=== PATIENT | female | born 1990 | race African-American/Black ===

== ENCOUNTER 2017-01-13 15:52 | Emergency (ER) | payer SELFPAY ==
[~2017-01-13] VITALS: Ht 152.4 cm; Wt 56.0 kg
[2017-01-13 15:53] VITALS: BP 136/77; PULSE 82; RESP 20; TEMP 98.5; O2SAT 99
--- NOTE | 2017-01-13 16:07 | PD ---
Physical Exam Time Seen by Provider: 16:05 Narrative 26 y/o female whop reports that she is ega 8 weeks here for evaluation of 2 days RLQ abdominal pain. +Nausea, denies vomiting, vaginal bleeding/ discharge. 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 Vital signs reviewed. Seen at triage desk. Awaiting bed placement. Data Data Last Documented VS Vital Signs Date Time Temp Pulse Resp B/P Pulse Ox O2 Delivery O2 Flow Rate FiO2 01/13/17 15:53 98.5 82 20 136/77 99 Room Air [facility] Medical Record Reviewed: Yes Supervised Visit with KENNEDY: Mayo Monk Jan 13, 2017 16:07
[2017-01-13 17:55] LABS: AUTOMATED NEUTROPHIL # 4.7 TH/MM3 (1.8-7.7); BASOPHIL % 0.4 % (0.0-2.0); EOSINOPHIL % 0.6 % (0.0-4.0); HEMATOCRIT 36.1 % (35.0-46.0); HEMO FLAGS DIFF FINAL; LYMPH % 20.3 % (9.0-44.0); LYMPHOCYTE # 1.4 TH/MM3 (1.0-4.8); MEAN CELL VOLUME 93.9 FL (80.0-100.0); MEAN CORPUSCULAR HEMOGLOBIN 31.1 PG (27.0-34.0); MEAN CORPUSCULAR HGB CONC 33.1 % (32.0-36.0); MONO % 10.3 % (0.0-8.0); NEUT % 68.4 % (16.0-70.0); PLATELET COUNT 270 TH/MM3 (150-450); RED BLOOD COUNT 3.84 MIL/MM3 (4.00-5.30); RED CELL DISTRIBUTION WIDTH 14.4 % (11.6-17.2); WHITE BLOOD COUNT 6.9 TH/MM3 (4.0-11.0)
[2017-01-13 18:09] LABS: ALT (GPT) 19 U/L (10-53); ANION GAP 7 MEQ/L (5-15); AST (GOT) 12 U/L (15-37); BICARBONATE 27.1 MEQ/L (21.0-32.0); BLOOD UREA NITROGEN 9 MG/DL (7-18); CHLORIDE 102 MEQ/L (98-107); GLOMERULAR FILTRATION RATE 129 ML/MIN (>89); POTASSIUM 3.5 MEQ/L (3.5-5.1); SODIUM (NA) 136 MEQ/L (136-145)
[2017-01-13 18:13] LABS: ALKALINE PHOSPHATASE 49 U/L (45-117); TOTAL BILIRUBIN ADULT 0.1 MG/DL (0.2-1.0)
[2017-01-13 18:20] LABS: BACTERIA, URINE RARE /hpf; BLOOD, URINE NEG (NEG); COMMENT (UR) CULT NOT INDICATED; CULTURE IF INDICATED CULT NOT INDICATED; GLUCOSE,URINE NEG (NEG); KETONE, URINE NEG (NEG); MUCUS URINE FEW /lpf (OCC); NITRITE,URINE NEG (NEG); SQUAMOUS EPITHELIAL CELL URINE 6 /hpf (0-5); URINE COLOR YELLOW (YELLW/STRAW)
[2017-01-13 18:40] LABS: BETA HCG QUANT 65484 MIU/ML (0-5)
[2017-01-13] MEDS ORDERED: PRENATAL VITAMIN PO (19:29)
[2017-01-13] MEDS ORDERED: CARB300C7 PO (19:29)
--- NOTE | 2017-01-13 19:36 | PD ---
HPI Chief Complaint: Related Problem Time Seen by Provider: 19:06 Travel History International Travel<30 days: No Contact w/Intl Traveler<30days: No Traveled to known affect area: No History of Present Illness HPI 26-year-old female presents with chief complaint of right-sided and low abdominal pain 2 days. Patient reports last menstrual period October 19. She reports the pain as episodes of "cramping" that lasts for approximately 10 minutes and then spontaneously resolved. She reports 2-3 episodes per day for the last 2 days. She currently has no pain. She reports nausea without vomiting. She denies fever, chills, vaginal bleeding, vaginal discharge, dysuria. She reports she was seen approximately one month ago in a [facility] for an episode of syncope where she had an ultrasound that she is unable to confirm what the ultrasound found. PFSH Past Medical History Narrative Medical Seizure order on Trileptal. 1 para 0 Cerebrovascular Accident: No (seizures) Social History Tobacco Use: No Allergies-Medications (Allergen,Severity, Reaction): Coded Allergies: No Known Allergies (Unverified , 01/13/17) Reported Meds & Prescriptions Reported Meds & Active Scripts Active Reported [ Vitamin] 1 Tab PO DAILY Carbamazepine ER 12 HR (Carbamazepine) 300 Mg Cap 300 Mg PO Q12HR Review of Systems Except as stated in HPI: all other systems reviewed are Neg General / Constitutional: No: Fever Eyes: No: Visual changes HENT: No: Headaches Cardiovascular: No: Chest Pain or Discomfort Respiratory: No: Shortness of Breath Gastrointestinal: Positive: Abdominal Pain Genitourinary: No: Dysuria Musculoskeletal: No: Pain Physical Exam Narrative GENERAL: [Alert, well-appearing female no acute distress.-] SKIN: Focused skin assessment warm/dry. HEAD: Atraumatic. Normocephalic. EYES: Pupils equal and round. No scleral icterus. No injection or drainage. ENT: No nasal bleeding or discharge. Mucous membranes pink and moist. NECK: Trachea midline. No JVD. CARDIOVASCULAR: Regular rate and rhythm. No murmur appreciated. RESPIRATORY: No accessory muscle use. Clear to auscultation. Breath sounds equal bilaterally. GASTROINTESTINAL: Abdomen soft, point tenderness in the suprapubic region, nondistended. Hepatic and splenic margins not palpable. : moderate amount of thick yellow/whitish discharge in the vaginal vault. Cervical slightly friable, os closed. +CMT. MUSCULOSKELETAL: No obvious deformities. No clubbing. No cyanosis. No edema. NEUROLOGICAL: Awake and alert. No obvious cranial nerve deficits. Motor grossly within normal limits. Normal speech. PSYCHIATRIC: Appropriate mood and affect; insight and judgment normal. Data Data Last Documented VS Vital Signs Date Time Temp Pulse Resp B/P Pulse Ox O2 Delivery O2 Flow Rate FiO2 01/13/17 15:53 98.5 82 20 136/77 99 Room Air Orders Beta Hcg (Quant/Titer) (01/13/17 16:07) Complete Blood Count With Diff (01/13/17 16:07) Comprehensive Metabolic Panel (01/13/17 16:07) Urinalysis - C+S If Indicated (01/13/17 16:07) Ed Urine Pregnancytest Poc (01/13/17 16:07) Lipase (01/13/17 16:07) Wet Prep Profile (01/13/17 19:24) Ed Poc Ultrasound (01/13/17 ) Azithromycin Powd Pack (Zithromax Powd P (01/13/17 20:00) Ceftriaxone Inj (Rocephin Inj) (01/13/17 20:00) Lidocaine 1% Inj (50 Ml) (Xylocaine 1% I (01/13/17 20:00) Acetaminophen (Tylenol) (01/13/17 20:00) Ed Poc Ultrasound (01/13/17 ) Gc And Chlamydia Pcr (01/13/17 20:08) Labs Laboratory Tests Test 01/13/17 01/13/17 01/13/17 16:22 16:33 19:41 Urine Color YELLOW Urine Turbidity HAZY Urine pH 8.0 Urine Specific [place] 1.024 Urine Protein TRACE mg/dL Urine Glucose (UA) NEG mg/dL Urine Ketones NEG mg/dL Urine Occult Blood NEG Urine Nitrite NEG Urine Bilirubin NEG Urine Urobilinogen LESS THAN 2.0 MG/DL Urine Leukocyte Esterase NEG Urine RBC 2 /hpf Urine WBC 3 /hpf Urine Squamous Epithelial 6 /hpf Cells Urine Amorphous Sediment RARE Urine Bacteria RARE /hpf Urine Mucus FEW /lpf Microscopic Urinalysis Comment CULT NOT INDICATED White Blood Count 6.9 TH/MM3 Red Blood Count 3.84 MIL/MM3 Hemoglobin 11.9 GM/DL Hematocrit 36.1 % Mean Corpuscular Volume 93.9 FL Mean Corpuscular Hemoglobin 31.1 PG Mean Corpuscular Hemoglobin 33.1 % Concent Red Cell Distribution Width 14.4 % Platelet Count 270 TH/MM3 Mean Platelet Volume 7.7 FL Neutrophils (%) (Auto) 68.4 % Lymphocytes (%) (Auto) 20.3 % Monocytes (%) (Auto) 10.3 % Eosinophils (%) (Auto) 0.6 % Basophils (%) (Auto) 0.4 % Neutrophils # (Auto) 4.7 TH/MM3 Lymphocytes # (Auto) 1.4 TH/MM3 Monocytes # (Auto) 0.7 TH/MM3 Eosinophils # (Auto) 0.0 TH/MM3 Basophils # (Auto) 0.0 TH/MM3 CBC Comment DIFF FINAL Differential Comment Sodium Level 136 MEQ/L Potassium Level 3.5 MEQ/L Chloride Level 102 MEQ/L Carbon Dioxide Level 27.1 MEQ/L Anion Gap 7 MEQ/L Blood Urea Nitrogen 9 MG/DL Creatinine 0.57 MG/DL Estimat Glomerular Filtration 129 ML/MIN Rate Random Glucose 70 MG/DL Calcium Level 9.1 MG/DL Total Bilirubin 0.1 MG/DL Aspartate Amino Transf 12 U/L (AST/SGOT) Alanine Aminotransferase 19 U/L (ALT/SGPT) Alkaline Phosphatase 49 U/L Total Protein 8.1 GM/DL Albumin 3.3 GM/DL Lipase 122 U/L Human Chorionic Gonadotropin, [address]237 MIU/ML Quant Clue Cells (Wet Prep) NONE SEEN Vaginal Trichomonas (Wet Prep) NONE SEEN Vaginal Yeast (Wet Prep) NONE SEEN MDM Medical Decision Making Medical Screen Exam Complete: Yes Emergency Medical Condition: Yes Differential Diagnosis PID, UTI, ectopic, unlikely appendicitis Narrative Course 26 year old female with c/o of low abd pain x 2 days. She describes the pain as "cramping" lasting up to 10 minutes & then resolving. She reports 2- 3 episodes per day for the last 2 days. Patient is unsure of her exact LMP but believes it was in October. On exam patient has mild suprapubic tenderness. Pelvic exam reveal copious amount of vaginal discharge & mild CMT. Patient will be treated empirically for GC/Chlamydia. Bedside ultrasound performed by Dr. Grant which reveal a single live intrauterine . Heart rate 158. CBC unremarkable. BMP unremarkable UA: No infection Wet prep: No yeast, clue cells, Trichomonas 2049: All diagnostic findings reviewed with patient. She was reexamined. Her abdomen is soft and nontender. She is nontoxic appearing. She was treated for cervicitis/PID and referred to [facility] for follow-up this week. Return precautions discussed. Patient agrees to plan. Diagnosis Primary Impression: PID (pelvic inflammatory disease) Additional Impression: Qualified Code: Z34.90 - , unspecified gestational age Referrals: [facility] Additional Instructions: Take Tylenol as needed for pain. Drink plenty fluids and rest. Call and make an appointment for follow-up with [facility] this week. Return to the emergency department if he develops new or worsening symptoms. Disposition: 01 DISCHARGE HOME Condition: Stable Marisabel Osuna Jan 13, 2017 19:36
[2017-01-13] MEDS ORDERED: ACETAMINOPHEN 325 MG TAB PO ONE (20:00)
[2017-01-13] MEDS ORDERED: AZITHROMYCIN PWD FOR SUSP 1 GM PACKET PO ONE (20:00)
[2017-01-13] MEDS ORDERED: cefTRIAXone 250 MG VIAL IM ONE (20:00)
[2017-01-13] MEDS ORDERED: LIDOCAINE HCL 1% 50 ML VIAL IM ONE (20:00)
--- NOTE | 2017-01-13 20:12 | PD ---
Physical Exam Narrative I, Dr. Grant, have reviewed the advance practice practitioner's documentation and am in agreement, met with the patient face to face, made the diagnosis, and the medical decision making was done by me. *My assessment and Findings: PID vs. UTI vs. bacterial vaginosis 26yo F who states she is about 8 weeks here with lower abdominal cramping for 2 days. Pt had yellow vaginal discharge on pelvic exam and mild cervical motion tenderness so will be empirically treated with ceftriaxone and azithromycin. Bedside US showed positive IUP with FHR 158bpm. Pt's abdomen is soft and nontender on exam. She is well appearing. Data Data Last Documented VS Vital Signs Date Time Temp Pulse Resp B/P Pulse Ox O2 Delivery O2 Flow Rate FiO2 01/13/17 15:53 98.5 82 20 136/77 99 Room Air Orders Beta Hcg (Quant/Titer) (01/13/17 16:07) Complete Blood Count With Diff (01/13/17 16:07) Comprehensive Metabolic Panel (01/13/17 16:07) Urinalysis - C+S If Indicated (01/13/17 16:07) Ed Urine Pregnancytest Poc (01/13/17 16:07) Lipase (01/13/17 16:07) Wet Prep Profile (01/13/17 19:24) Ed Poc Ultrasound (01/13/17 ) Azithromycin Powd Pack (Zithromax Powd P (01/13/17 20:00) Ceftriaxone Inj (Rocephin Inj) (01/13/17 20:00) Lidocaine 1% Inj (50 Ml) (Xylocaine 1% I (01/13/17 20:00) Acetaminophen (Tylenol) (01/13/17 20:00) Ed Poc Ultrasound (01/13/17 ) Gc And Chlamydia Pcr (01/13/17 20:08) Labs Laboratory Tests Test 01/13/17 01/13/17 01/13/17 01/13/17 16:22 16:32 16:33 19:41 Urine Color YELLOW Urine Turbidity HAZY Urine pH 8.0 Urine Specific [place] 1.024 Urine Protein TRACE mg/dL Urine Glucose (UA) NEG mg/dL Urine Ketones NEG mg/dL Urine Occult Blood NEG Urine Nitrite NEG Urine Bilirubin NEG Urine Urobilinogen LESS THAN 2.0 MG/DL Urine Leukocyte Esterase NEG Urine RBC 2 /hpf Urine WBC 3 /hpf Urine Squamous Epithelial 6 /hpf Cells Urine Amorphous Sediment RARE Urine Bacteria RARE /hpf Urine Mucus FEW /lpf Microscopic Urinalysis Comment CULT NOT INDICATED Chlamydia trachomatis DNA NOT DETECTED (PCR) Neisseria gonorrhoeae DNA NOT DETECTED (PCR) White Blood Count 6.9 TH/MM3 Red Blood Count 3.84 MIL/MM3 Hemoglobin 11.9 GM/DL Hematocrit 36.1 % Mean Corpuscular Volume 93.9 FL Mean Corpuscular Hemoglobin 31.1 PG Mean Corpuscular Hemoglobin 33.1 % Concent Red Cell Distribution Width 14.4 % Platelet Count 270 TH/MM3 Mean Platelet Volume 7.7 FL Neutrophils (%) (Auto) 68.4 % Lymphocytes (%) (Auto) 20.3 % Monocytes (%) (Auto) 10.3 % Eosinophils (%) (Auto) 0.6 % Basophils (%) (Auto) 0.4 % Neutrophils # (Auto) 4.7 TH/MM3 Lymphocytes # (Auto) 1.4 TH/MM3 Monocytes # (Auto) 0.7 TH/MM3 Eosinophils # (Auto) 0.0 TH/MM3 Basophils # (Auto) 0.0 TH/MM3 CBC Comment DIFF FINAL Differential Comment Sodium Level 136 MEQ/L Potassium Level 3.5 MEQ/L Chloride Level 102 MEQ/L Carbon Dioxide Level 27.1 MEQ/L Anion Gap 7 MEQ/L Blood Urea Nitrogen 9 MG/DL Creatinine 0.57 MG/DL Estimat Glomerular Filtration 129 ML/MIN Rate Random Glucose 70 MG/DL Calcium Level 9.1 MG/DL Total Bilirubin 0.1 MG/DL Aspartate Amino Transf 12 U/L (AST/SGOT) Alanine Aminotransferase 19 U/L (ALT/SGPT) Alkaline Phosphatase 49 U/L Total Protein 8.1 GM/DL Albumin 3.3 GM/DL Lipase 122 U/L Human Chorionic Gonadotropin, [address]185 MIU/ML Quant Clue Cells (Wet Prep) NONE SEEN Vaginal Trichomonas (Wet Prep) NONE SEEN Vaginal Yeast (Wet Prep) NONE SEEN MDM Supervised Visit with KENNEDY: Yes Diagnosis Primary Impression: PID (pelvic inflammatory disease) Natalia Grant DO Jan 13, 2017 20:12
[2017-01-13 22:49] LABS: CHLAMYDIA PCR NOT DETECTED (NOT DETECT); NEISSERIA PCR NOT DETECTED (NOT DETECT)
== END 2017-01-13 21:50 | disposition home or self-care (01) ==
LOC: NEPD 15:52
DX: O99.89 Other specified diseases and conditions complicating pregnancy, childbirth and the puerperium (principal); N73.9 Female pelvic inflammatory disease, unspecified; Z34.91 Encounter for supervision of normal pregnancy, unspecified, first trimester
CPT/HCPCS: 80053; 81001; 83690; 84702; 84703; 85025; 87210; 87491; 87591; 96372; 99284; J0696